=== PATIENT | male | born 1955 | race Two or more races ===

== ENCOUNTER → 2018-03-10 15:45 | Outpatient (CLI) | payer OTHER, SELFPAY ==
--- NOTE | 2018-03-10 15:45 | DT_ITS ---
This patient was seen during an EMR downtime March 10, 2018 - March 17, 2018. This patient may have a combination of paper and electronic documentation or all paper documentation. All documentation is viewable within the e-chart portion of [facility] for each patient visit.
[2018-03-16 02:54] LABS: Microalbumin,Random Urine 20.1 mg/L (NO RANGE EST.)
== END ==
PROVIDERS: Visit Provider Family Medicine
DX: E11.9 Type 2 diabetes mellitus without complications (principal)
CPT/HCPCS: 82043; 82570

== ENCOUNTER → 2018-03-13 09:00 | Outpatient (CLI) | payer OTHER, SELFPAY ==
--- NOTE | 2018-03-13 09:00 | DT_ITS ---
This patient was seen during an EMR downtime March 10, 2018 - March 17, 2018. This patient may have a combination of paper and electronic documentation or all paper documentation. All documentation is viewable within the e-chart portion of [facility] for each patient visit.
[2018-03-18 02:57] LABS: ALB/GLOB Ratio 0.8 RATIO (0.9-2.4); AST(SGOT) 17 U/L (15-37); Alanine Aminotransfer ALT/SGPT 60 U/L (16-61); Albumin, Serum 3.3 g/dL (3.2-5.0); Alkaline Phosphatase 22 U/L (45-117); BUN 47 mg/dL (7-18); BUN/Creat Ratio 35.3 RATIO (10-20); Creatinine, Serum 1.33 mg/dL (0.70-1.30); EST Glomerular Filtration Rate 58 mL/min (>60); Est Glom Filt Rate - Afr Amer 70 mL/min (>60); Protein, Total 7.3 g/dL (6.4-8.2)
[2018-03-18 02:58] LABS: Anion Gap 13 (5-15); Chloride 96 mmol/L (98-107); Cholesterol 268 mg/dL (200); High Density Lipoprotein 40 mg/dL; Potassium 3.6 mmol/L (3.5-5.1); Sodium Level 135 mmol/L (136-145); Triglycerides 237 mg/dL; Very Low Density Lipoprotein 47 mg/dL (5-40)
[2018-03-18 02:59] LABS: Glucose 347 mg/dL (74-106)
[2018-03-18 03:03] LABS: Hemoglobin 14.7 g/dl (13.0-16.5)
[2018-03-18 03:04] LABS: Basophil% 0.3 % (0-1); Eosinophils% 2.5 % (0-5); Hematocrit 44.4 % (40-54); Lymphocyte % 39.9 % (19-41); Mean Corp Hgb Conc 33.1 g/gl (32-36); Mean Corpuscular Hgb 26.3 pg (27.0-32.0); Mean Corpuscular Volume 79.3 fL (80-94); POSITIVE COUNT NO; POSITIVE DIFFERENTIAL NO; POSITIVE MORPHOLOGY NO; Platelet Count 178 K/mm3 (150-450); RBC Distribution Width CV 15.8 % (11.6-14.6); RBC Distribution Width SD 45.4 fl (35.1-43.9)
[2018-03-18 03:05] LABS: Absolute Lymphocyte Count 3.06 X10^3/ul (0.83-4.51); Absolute Neutrophil Count 3.6 X10^3/uL (2.0-7.7); Basophil# 0.02 X10^3/uL; Eosinophil# 0.19 X10^3/uL; Lymphocyte # 3.06 X10^3/ul (4.0); Monocyte# 0.77 X10^3/uL; Neutrophil # 3.61 X10^3/uL (2.7-7.7)
[2018-03-18 03:06] LABS: White Blood Count 7.7 K/mm3 (4.4-11.0)
== END ==
PROVIDERS: Visit Provider Family Medicine
DX: E11.9 Type 2 diabetes mellitus without complications (principal); E66.01 Morbid (severe) obesity due to excess calories; I10 Essential (primary) hypertension; E86.0 Dehydration
CPT/HCPCS: 36415; 80053; 80061; 82533; 85025